=== PATIENT | male | born 1950 | race African-American/Black ===

== ENCOUNTER 2020-11-22 08:33 | Outpatient (CLI) | payer MEDICARE, MEDICAID | END 2020-11-22 08:34 | disposition home or self-care (01) | LOC: BICRAD 08:33 | PROVIDERS: ATTEND Internal Medicine Hematology & Oncology | DX: C90.00 Multiple myeloma not having achieved remission (principal); D47.2 Monoclonal gammopathy | CPT/HCPCS: 77075; 83883; 84156; 84166 ==

== ENCOUNTER 2020-12-06 09:39 | Outpatient (CLI) | payer MEDICARE ==
[2020-12-06 21:10] LABS: SARS-CoV-2 PCR by NAA Not Detected (NotDetected)
== END 2020-12-06 09:40 | disposition home or self-care (01) ==
LOC: LABBT 09:39
PROVIDERS: ATTEND Internal Medicine Hematology & Oncology
DX: Z01.812 Encounter for preprocedural laboratory examination (principal); D47.2 Monoclonal gammopathy; Z20.822 Contact with and (suspected) exposure to COVID-19
CPT/HCPCS: U0003; U0005

== ENCOUNTER 2020-12-11 08:40 | Day surgery (SDC) | payer MEDICARE ==
[2020-12-10 15:44] VITALS: BMI 33.5
[2020-12-11 09:12] LABS: Prothrombin Time 12.9 sec (12.0-14.7)
[2020-12-11 11:33] VITALS: BP 172/92; TEMP 98.2
== END 2020-12-11 12:35 | disposition home or self-care (01) ==
LOC: CT 08:40
PROVIDERS: ATTEND Internal Medicine Hematology & Oncology
PROC: 07DR3ZX Extraction of Iliac Bone Marrow, Percutaneous Approach, Diagnostic (ICD-10-PCS; principal; 2020-12-11)
DX: C90.30 Solitary plasmacytoma not having achieved remission (principal); D47.2 Monoclonal gammopathy; E11.9 Type 2 diabetes mellitus without complications; I10 Essential (primary) hypertension; E78.00 Pure hypercholesterolemia, unspecified; Z79.82 Long term (current) use of aspirin; Z79.84 Long term (current) use of oral hypoglycemic drugs; Z79.899 Other long term (current) drug therapy
CPT/HCPCS: 20225; 77012; 85097; 85610; 85730; 88184; 88237; 88264; 88280; 88305; 88311; 88313; 88341; 88342